=== PATIENT | female | born 1980 | race Two or more races ===

== ENCOUNTER 2017-04-22 00:17 | Emergency (ER) | payer SELFPAY ==
--- NOTE | 2017-04-22 02:49 | NUR ---
CALLED FOR PT NO ANSWER LWBT
== END 2017-04-22 02:50 | disposition left against medical advice (07) ==
LOC: ER 00:20
DX: Z53.21 Procedure and treatment not carried out due to patient leaving prior to being seen by health care provider (principal)

== ENCOUNTER 2017-05-08 10:43 | Emergency (ER) | payer MEDICAID ==
[~2017-05-08] VITALS: Ht 167.6 cm; Wt 51.3 kg
--- NOTE | 2017-05-08 10:43 | NUR ---
Patient ambulated to ER bed/spot 2A, respiration:easy, NAD, pending MD evaluation, patient's significant other is at bedside.
[2017-05-08] MEDS ORDERED: DEXAMETHASONE SOD PHOSPHATE 4 MG INJ IV ONE (11:30)
[2017-05-08] MEDS ORDERED: CLINDAMYCIN PHOSPHATE IV 600 MG in IV DEXTROSE 5% 100 ML IV ONE (11:30)
[2017-05-08] MEDS ORDERED: LEVOFLOXACIN 750MG/D5W 150 ML IV ONE ×2 (11:30→11:49)
[2017-05-08] MEDS ORDERED: IV NORMAL SALINE 1000 ML BAG IV ONE ×2 (11:30→14:45)
[2017-05-08 11:41] LABS: BASOPHILS % (AUTO) 0.3 % (0.0-2.0); EOSINOPHILS # (AUTO) 0.4 K/uL (0.0-0.7); EOSINOPHILS % (AUTO) 5.8 % (0.0-7.0); HEMATOCRIT 31.4 % (31.2-41.9); HEMOGLOBIN 10.4 g/dL (10.9-14.3); LYMPHOCYTES # (AUTO) 0.3 K/uL (20.0-40.0); LYMPHOCYTES % (AUTO) 4.9 % (20.5-51.5); MEAN CORPUSCULAR HEMOGLOBIN 24.7 uug (24.7-32.8); MEAN CORPUSCULAR HGB CONC 33 g/dL (32.3-35.6); MEAN CORPUSCULAR VOLUME 74.8 fL (75.5-95.3); MONOCYTES # (AUTO) 0.5 K/uL (2.0-10.0); MONOCYTES % (AUTO) 6.8 % (0.0-11.0); NEUTROPHILS # (AUTO) 5.5 K/uL (1.8-8.9); NEUTROPHILS % (AUTO) 82.2 % (38.5-71.5); PLATELET COUNT (AUTO) 209 K/uL (179-408); WHITE BLOOD COUNT (AUTO) 6.7 K/uL (3.8-11.8)
[2017-05-08] MEDS ORDERED: ONDANSETRON IV *ER 4 MG/2 ML VIAL IV ONE ×2 (11:45→14:30)
[2017-05-08] MEDS ORDERED: DEXAMETHASONE SOD PHOSPHATE 10 MG INJ ONE (11:48)
[2017-05-08] MEDS ORDERED: CLINDAMYCIN PHOSPHATE 600 MG/4 ML VIAL ONE (11:48)
[2017-05-08 11:53] LABS: CREATININE 0.6 mg/dL (0.6-1.3); POTASSIUM 3.6 mmol/L (3.5-5.1)
[2017-05-08] MEDS ORDERED: ONDANSETRON 4 MG/2 ML VIAL ONE ×2 (11:53→14:51)
--- NOTE | 2017-05-08 11:57 | NUR ---
Patient is resting comfortably in bed with eyes closed. NAD. Spouse is at bedside.
[2017-05-08 11:58] LABS: BILIRUBIN,DIRECT 0.1 mg/dL (0.0-0.2); BILIRUBIN,TOTAL 0.3 mg/dL (0.2-1.0); TOTAL PROTEIN, SERUM 6.5 g/dL (6.4-8.2)
[2017-05-08] MEDS ORDERED: KETOROLAC TROMETHAMINE 30 MG INJ IVP ONE (12:15)
[2017-05-08] MEDS ORDERED: KETOROLAC TROMETHAMINE 30 MG INJ ONE (12:25)
[2017-05-08 14:15] LABS: *BILIRUBIN,URIN NEGATIVE (NEGATIVE); *BLOOD, URINE Trace-intact (NEGATIVE); *CLARITY,URINE CLEAR (CLEAR); *COLOR,URINE YELLOW (YELLOW); *KETONES,URINE NEGATIVE (NEGATIVE); *PROTEIN,URINE NEGATIVE (NEGATIVE); *UROBILINOGEN,URINE 0.2 E.U./dl (NORMAL); LEUKOCYTE ESTERASE ,URINE NEGATIVE (NEGATIVE); NITRITE, URINE NEGATIVE (NEGATIVE); PH,URINE 6.5 (5.0-8.0); UGLUCOSE NEGATIVE (NEGATIVE)
[2017-05-08 14:22] LABS: BACTERIA,URINE FEW /HPF (NONE SEEN); RBC,URINE 0-3 /HPF (0-3); SQUAMOUS EPITHELIAL CELL,UR FEW /HPF (NONE SEEN); WBC,URINE 0-3 /HPF (0-3)
[2017-05-08] MEDS ORDERED: MORPHINE SULFATE 4 MG/1 ML DISP.SYRIN IV ONE (14:30)
[2017-05-08] MEDS ORDERED: OSELTAMIVIR PHOSPHATE 75 MG CAPSULE PO ONE (14:30)
[2017-05-08] MEDS ORDERED: MORPHINE SULFATE 4 MG/1 ML DISP.SYRIN ONE (14:51)
[2017-05-08] MEDS ORDERED: OSELTAMIVIR PHOSPHATE 75 MG CAPSULE ONE (14:51)
--- NOTE | 2017-05-08 15:40 | NUR ---
Decreased headaches expressed, pending disposition
--- NOTE | 2017-05-08 17:05 | NUR ---
IV removed. Catheter intact and site benign. Pressure and 4x4 gauze applied to site. No bleeding noted. Patient discharged to home in stable conditon. Written and verbal after care instructions given to patient and o[place]i-speaking spouse. Patient and family verbalized understanding of instructions.
== END 2017-05-08 17:17 | disposition home or self-care (01) ==
LOC: ER 10:43
DX: J11.00 Influenza due to unidentified influenza virus with unspecified type of pneumonia (principal); E86.0 Dehydration
CPT/HCPCS: 36415; 71045; 80048; 80076; 81001; 83605; 84484; 84703; 85025; 85730; 87040 ×2; 87086; 87400; 93005; 96361; 96365; 96366; 96368; 96375; 96376; 99285; A4663; J1100; J1885; J1956; J2270; J2405 ×2; J3490; J7030 ×2; J7060; 70030-TC

== ENCOUNTER 2018-09-03 21:05 | Emergency (ER) | payer MEDICAID, OTHER ==
[~2018-09-03] VITALS: Ht 165.1 cm; Wt 51.7 kg
[2018-09-03] MEDS ORDERED: AZITHROMYCIN 250 MG TABLET PO ONE (22:15)
[2018-09-03] MEDS ORDERED: AZITHROMYCIN 250 MG TABLET ONE (22:19)
[2018-09-03 22:20] VITALS: BP 101/59
== END 2018-09-03 22:20 | disposition home or self-care (01) ==
LOC: ER 21:06
DX: J06.9 Acute upper respiratory infection, unspecified (principal)
CPT/HCPCS: 71045; A4663; Q0144

== ENCOUNTER 2019-02-12 20:54 | Emergency (ER) | payer OTHER ==
[~2019-02-12] VITALS: Ht 165.1 cm; Wt 53.5 kg
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
--- NOTE | 2019-02-12 21:38 | NUR ---
[facility]ORE[facility] AT BEDSIDE (RANDA)
--- NOTE | 2019-02-12 21:57 | NUR ---
Patient discharged to home in stable conditon. Written and verbal after care instructions given. Patient verbalizes understanding of instructions. PT IS AMBULATORY W/ CRUTCHES, ANTALGIC GAIT, +SLEEVE ON R ANKLE ALL BELONGINGS W/ PT
[2019-02-12 21:59] VITALS: BP 114/74
== END 2019-02-12 21:59 | disposition home or self-care (01) ==
LOC: ER 20:56
DX: M79.604 Pain in right leg (principal); R22.41 Localized swelling, mass and lump, right lower limb; V49.9XXA Car occupant (driver) (passenger) injured in unspecified traffic accident, initial encounter; Y93.89 Activity, other specified; Y92.89 Other specified places as the place of occurrence of the external cause; Y99.8 Other external cause status
CPT/HCPCS: A4663

== ENCOUNTER 2019-08-23 15:08 | Emergency (ER) | payer OTHER ==
[~2019-08-23] VITALS: Ht 165.1 cm; Wt 53.5 kg
[2019-08-23] MEDS ORDERED: SUMA50TA PO (15:14)
--- NOTE | 2019-08-23 15:30 | NUR ---
Dr. Santacruz here to see pt for MSE.
--- NOTE | 2019-08-23 15:55 | NUR ---
Patient discharged to home in stable condition. Written and verbal after care instructions given. Patient verbalizes understanding of instructions. Stressed follow up or return to ER for worsening s/s.
== END 2019-08-23 15:56 | disposition home or self-care (01) ==
LOC: ER 15:15
DX: R00.2 Palpitations (principal); G43.909 Migraine, unspecified, not intractable, without status migrainosus; Z79.899 Other long term (current) drug therapy; Z87.09 Personal history of other diseases of the respiratory system
CPT/HCPCS: 93005; A4663